=== PATIENT | female | born 1975 | race Two or more races ===

== ENCOUNTER 2020-06-12 08:18 | Day surgery (SDC) | payer OTHER ==
[~2020-06-12] VITALS: Ht 149.9 cm; Wt 65.8 kg
[2020-06-12] VITALS (9 sets, daily range): BP systolic 100–113; BP diastolic 59–70
--- NOTE | 2020-06-12 06:43 | Anethesia Preoperative Eval ---
Anesthesia Pre-op PMH/ROS General Date of Evaluation: Jun 12, 2020 Time of Evaluation: 06:42 Anesthesiologist: margie ASA Score: ASA 2 Mallampati Score Class I : Soft palate, uvula, fauces, pillars visible Class II: Soft palate, uvula, fauces visible Class III: Soft palate, base of uvula visible Class IV: Only hard plate visible Mallampati Classification: Class II Surgeon: naresh Diagnosis: abdominal pain, gerd, gastritis Surgical Procedure: egd Anesthesia History: none Social History: smoking - nonsmoker Family History: no anesthesia problems Allergies: Coded Allergies: Acetaminophen (Verified Allergy, 06/12/20) Aspirin (Verified Allergy, 06/12/20) Uncoded Allergies: PAIN AID (Allergy, Intermediate, RASH, 06/12/20) OTC PAIN MEDICATION CONTANING ACETAMINOPHEN, ASPIRIN, CAFFEINE AND SALICYLITES Medications: see eMAR Patient NPO?: Yes Past Medical History Gastrointestinal/Genitourinary: Reports: GERD, other - gastritis PSxH Narrative: x3 Anesthesia Pre-op Phys. Exam Physician Exam Last Vital Signs Date Time Temp Pulse Resp B/P (MAP) Pulse Ox O2 Delivery O2 Flow Rate FiO2 06/12/20 09:02 Room Air 06/12/20 08:50 97.6 69 18 106/62 100 Constitutional: NAD Neurologic: CN 2-12 intact Cardiovascular: RRR Respiratory: CTA Gastrointestinal: S/NT/ND Airway Exam Mallampati Score: Class II MO: full Neck: flexible TMD: 2fb ROM: full Anesthesia Pre-op A/P Labs Labs Test 06/12/20 08:30 Urine HCG, Qualitative Negative (NEGATIVE) Microbiology Date/Time Source Procedure Growth Status 06/08/20 08:35 Nasopharynx SARS-CoV-2 RdRp Gene Assay - Final Complete Risk Assessment & Plan Assessment: asa2 Plan: mac Status Change Before Surgery: No Pre-Antibiotics Drug: Archana Anderson MD Jun 12, 2020 06:43
--- NOTE | 2020-06-12 08:30 | Short Stay Surgery H&P ---
History of Present Illness History of Present Illness Chief Complaint Abdominal pains/GERDs/nausea and vomiting with dysphagia HPI Sarah Rueda is a 44 year old female who was admitted on for Abdominal Pain, Gerd, Gastritis/nausea and vomiting episodes. Patient History PAST MEDICAL HISTORY: (1) History of (2) History of breast surgery Review of Systems Cardiovascular: Reports: no symptoms Respiratory: Reports: no symptoms Skeletal: Reports: trauma Gastrointestinal: Reports: gastro esophageal reflux disease Genitourinary: Reports: no symptoms Neurologic: Reports: no symptoms Endocrine: Reports: no symptoms Hematologic: Reports: no symptoms Physical Exam Skin: normal HENT: normal Heart: normal Lungs: normal Abdomen: abnormal Extremities: normal Genitourinary: normal Plan Plan of Care Upper GI endoscopy and biopsy. Preop Interventions None. Summary of Findings See the reports. Attestation Are the patient's medical conditions optimized for surgery? Attestation Response: yes Brayden Hull MD Jun 12, 2020 08:30
--- NOTE | 2020-06-12 08:32 | Pre-Procedure Note/Attestation ---
Pre-Procedure Note/Attestation Complete Prior to Procedure Planned Procedure: left Procedure Narrative: The examination of the u[pper GI tract via endoscopy and obtaining biopsy. Indications for Procedure Pre-Operative Diagnosis: R/O Esophagitis/gastritis/peptic ulcer Attestation I attest that I discussed the nature of the procedure; its benefits; risks and complications; and alternatives (and the risks and benefits of such alternatives), prior to the procedure, with the patient (or the patient's legal premium representative). I attest that, if there was a reasonable possibility of needing a blood transfusion, the patient (or the patient's legal premium representative) was given the [place] [facility] standardized written summary, pursuant to the Emanuel Mark Blood Safety Act ([place] Health and Safety Code # 1645, as amended). I attest that I re-evaluated the patient just prior to the surgery and that there has been no change in the patient's H&P, except as documented below: Brayden Hull MD Jun 12, 2020 08:32
--- NOTE | 2020-06-12 08:33 | Discharge Instructions ---
Discharge Instructions Discharge Instructions Follow up with: No need to follow up with the doctor. For Congestive Heart Failure Reminder Report to your physician any weight gain of 5 pounds or more in one week. Brayden Hull MD Jun 12, 2020 08:33
[2020-06-12] MEDS ORDERED: LR 1000ml ONE (09:00)
[2020-06-12] MEDS ORDERED: Lidocaine 1% MPF 10mg/ml 5ml ONE (09:00)
--- NOTE | 2020-06-12 09:33 | Endoscopy Procedure Note ---
Endoscopy Procedure Note General Indication for Procedure: Abdominal pains/GERDs/dysphagia and nausea Procedures Performed: EGD - Mild gastritis otherwise normal upper GI. endoscopy. Random biopsy was done from gastric body. Specimen: yes Pt Tolerated Procedure Well: Yes Estimated Blood Loss: none Anesthesia Anesthesiologist: Dr. Connelly Anesthesia: moderate sedation Medications Medication Given: see anesthesia record Inserted Devices Implant(s) used?: No Quality Quality of Bowel Preparation: Good GI Core Measures 50 yrs or older w/o bx or poly: Not Applicable 10yrs. F/U recommended: Not Applicable Med reason:<3 yrs.: System Reason:<3 yrs.: Brayden Hull MD Jun 12, 2020 09:33
[2020-06-12] MEDS ORDERED: fentaNYL 100 mcg/2 mL IV PRN (09:45)
[2020-06-12] MEDS ORDERED: Midazolam 2mg/2ml Inj IVP PRN (09:45)
[2020-06-12] MEDS ORDERED: LR 1000ml 1,000 ML IVLG SCH (09:45)
[2020-06-12] MEDS ORDERED: Atropine Inj 1mg/10ml Syr IVP PRN (09:45)
[2020-06-12] MEDS ORDERED: DiphenhydrAMINE 50mg/ml Inj IVP PRN (09:45)
--- NOTE | 2020-06-12 09:51 | Immediate Post-Op Evaluation ---
Immediate Post-Op Evalulation Immediate Post-Op Evalulation Procedure: egd w/bx Date of Evaluation: Jun 12, 2020 Time of Evaluation: 09:51 IV Fluids: 250ml lr Blood Products: none Estimated Blood Loss: negligible Blood Pressure Systolic: 109 Blood Pressure Diastolic: 68 Pulse Rate: 71 Respiratory Rate: 18 O2 Sat by Pulse Oximetry: 100 Temperature (Fahrenheit): 99.1 Pain Score (1-10): 0 Nausea: No Vomiting: No Complications none Patient Status: awake, reacts, patent Hydration Status: adequate Drug: Archana Anderson MD Jun 12, 2020 09:51
--- NOTE | 2020-06-12 09:53 | 48 Hour Post Anesthesia Eval ---
Post Anesthesia Evaluation Procedure: egd w/bx Date of Evaluation: Jun 12, 2020 Time of Evaluation: 09:53 Blood Pressure Systolic: 110 0: 68 Pulse Rate: 66 Respiratory Rate: 18 Temperature (Fahrenheit): 99.1 O2 Sat by Pulse Oximetry: 100 Airway: patent Nausea: No Vomiting: No Pain Intensity: 0 Hydration Status: adequate Cardiopulmonary Status: stable Mental Status/LOC: patient returned to baseline Post-Anesthesia Complications: none Follow-up care needed: N/A Archana Connelly MD Jun 12, 2020 09:53
--- NOTE | 2020-06-12 10:30 | Pre-op HX & Phy Repo 2 SIG ---
DATE OF ADMISSION: 06/12/2020 HISTORY OF PRESENT ILLNESS: The patient is a 44-year-old , non-Kiswahili speaking injured worker who is being seen prior to undergoing the procedure of upper GI endoscopy examination that she has been scheduled to receive for further evaluation of her gastrointestinal symptoms that she has been complaining subsequent to her work injury. This applicant was seen in my office approximately 4 to 5 months ago with the same complaint of having abdominal pain mostly located over the epigastric area. Today, she tells me that she is still suffering from the symptoms of gastroesophageal acid reflux and epigastric pain that happens intermittently. She reports that she has been dealing with the symptoms approximately for 2 to 3 years that occurred subsequent to her work injury when she was started on multiple medications including nonsteroidal anti-inflammatory agents such as ibuprofen. She reports that she has been taking these medications along with analgesics from [id number] even at this time. She also complains of having nausea and episodes of vomiting with difficulty swallowing intermittently. Her heartburn is moderate in intensity as she mentions. As I mentioned, she was started on ibuprofen and similar compounds that she has tried to cut them down and try to taken them occasionally at this point. She denies having any major diarrhea, but has had history of constipation. She also complains of excessive eructation and belching as well. 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 However, she has been treated medically with medications for this condition and she has also been experiencing pain over the cervical spine. PAST MEDICAL HISTORY: Basically nonsignificant. She denies having any hypertension, hepatitis or colitis, pneumonitis, meningitis, etc. PAST SURGICAL HISTORY: She has undergone three C-sections in different years and removal of the benign breast cyst. ALLERGIES: Nonsignificant. CHILDHOOD DISEASE: As usual. HABITS: She denies drinking alcohol or smoking cigarettes. REVIEW OF SYSTEMS: Basically history of present illness. PHYSICAL EXAMINATION: GENERAL: At this time reveals alert, well-oriented female, does not seem to be in any acute distress, answers the questions quite properly. VITAL SIGNS: Blood pressure 106/62, temperature 97.6, respiratory rate 18, pulse rate is 69 per minute, oxygen saturation 100% on room air. HEENT: Normocephalic. Pupils are equal in size and reactive to light and accommodation. No visible jaundice. Buccal cavity, tongue midline, well hydrated. No ulcers. NECK: Supple. No JVD, thyromegaly, or adenopathy. CHEST: Clear to auscultation and percussion. No rales or rhonchi heard. HEART: S1, S2 normal. Regular rhythm. No gallops or murmur. ABDOMEN: Somewhat obese, but tender particular over the epigastric area. There is no organomegaly or palpable mass. Bowel sounds are present. No rebound phenomena. EXTREMITIES: Within normal limits. CENTRAL NERVOUS SYSTEM: Grossly normal. INITIAL PREOPERATIVE IMPRESSION: 1. Abdominal pain, epigastric pain with history of gastroesophageal acid reflux aggravated by use of NSAID medications, rule out NSAID-induced gastropathy, peptic ulcer disease, gastritis, esophagitis. 2. History of nausea and vomiting, rule out NSAID-induced gastropathy, peptic ulcer disease, gastritis. 3. History of bodily injury, work related. RECOMMENDATION: At this time, the applicant seems to be quite stable to undergo the procedure of upper GI endoscopy for which she has been scheduled. She understands the risks and benefits and will sign the consent. Said Eliza Hull DR: Federico JOB#: [id number] CC:
--- NOTE | 2020-06-12 10:45 | Procedure Note ---
DATE OF PROCEDURE: 06/12/2020 SURGEON: Brayden Hull MD. PROCEDURE: Esophagogastroduodenoscopy with biopsy. PREOPERATIVE DIAGNOSES: History of heart burn, abdominal pain, nausea and vomiting, rule out NSAID induced gastropathy. POSTOPERATIVE DIAGNOSIS: Mild generalized gastritis. Biopsy was taken per random from gastric body. MEDICATION USED: Per Dr. Gilliam, anesthesiologist. INSTRUMENT: GIF Olympus upper GI video endoscope. DESCRIPTION OF PROCEDURE: The patient after arriving endoscopy unit, was told about risks and benefits of the procedure which she accepted and signed informed consent. She was then put on the left lateral decubitus position. After adequate IV sedation, the scope was gently passed through the cricopharyngeal area, was lodged into the upper esophagus and gradually advanced towards gastroesophageal junction. The entire length of esophagus was normal and there was no any evidence of inflammatory process, ulceration, stricture, etc. GE junction also looked completely normal without any evidence of Powell's mucosa or hiatal hernia. At this time, the scope was advanced into the stomach, gastric cavity was distended with insufflation of air. Gradually from the fundus all the way to the antrum, the gastric mucosa was examined, which revealed evidence of mild inflammatory process consistent with mild generalized gastritis. There was no ulcers or tumors or polyps or bleeding sites. At this time, a random biopsy from gastric body was obtained and subsequently scope was passed through the pylorus. First and second portion of duodenum were found to be also completely normal. Finally, the scope was pulled back into the stomach. A retroflexion maneuver was applied and the area of the gastroesophageal junction was examined which revealed completely normal. At this time, the scope was pulled out and the procedure was terminated. The patient tolerated the procedure well and left the endoscopy room in good condition. Brayden Hull M.D. DR: Federico JOB#: [id number] CC:
== END 2020-06-12 11:00 | disposition home or self-care (01) ==
LOC: GAS 08:18
DX: K29.70 Gastritis, unspecified, without bleeding (principal); B96.81 Helicobacter pylori [H. pylori] as the cause of diseases classified elsewhere; K21.9 Gastro-esophageal reflux disease without esophagitis; E66.9 Obesity, unspecified; Z88.6 Allergy status to analgesic agent
CPT/HCPCS: 43239; 81025; 94003; J2704; J7120; U0002; 94150